=== PATIENT | male | born 1965 | race Caucasian/White ===

== ENCOUNTER → 2019-11-26 11:25 | Outpatient (CLI) | payer SELFPAY | PROVIDERS: Referring Provider Orthopaedic Surgery; Visit Provider Orthopaedic Surgery | DX: R69 Illness, unspecified (principal) ==

== ENCOUNTER 2020-03-28 13:17 | Day surgery (SDC) | payer MEDICAID, SELFPAY ==
[2019-11-26 11:42] VITALS: BMI 23.7
--- NOTE | 2020-03-12 12:23 | PCM.HP.BLA ---
History and Physical Date of Admission: 03/14/20 HISTORY AND PHYSICAL ? [place] 1965 ? ? REFERRING PHYSICIAN: Micha William, DO ? CHIEF COMPLAINT: Consult (Consult port placement) ? HPI: The patient is a 54 year old male presents with diagnosis of polycythemia vera. He is referred for consideration of placement of portacath. He denies history of blood clots. He did have a left clavicular fracture in past, also thumb, wrist, leg, ribs fractures in the past. He denies breathing difficulties. He denies TOB use. He had smoked marijuana years ago, but none presently. Presently on aspirin. ? ? PAST MEDICAL HISTORY ? Basal cell carcinoma ? ? Polycythemia ? ? PAST SURGICAL HISTORY ? PAST SURGICAL HISTORY OF ? ? ? basal cell carcinoma- face and shoulder ? PAST SURGICAL HISTORY OF ? ? ? laser ablation for BPH ? ? PAST INJURIES Denies head injuries, has had left clavicular fracture in past, has had thumb/wrist fractures in past ? Current Outpatient Medications ? hydroxyurea (HYDREA) 500 mg capsule Take 1 capsule by mouth once daily. ? aspirin, enteric coated (ASPIRIN, ENTERIC COATED) 81 mg EC tablet Take 81 mg by mouth once daily. ? ? ALLERGIES: Patient has no known allergies. ? PERSONAL HISTORY: Social History ?Tobacco Use ? Smoking status: Never Smoker ? Smokeless tobacco: Never Used Substance Use Topics ? Alcohol use: Yes ? ? Alcohol/week: 5.0 standard drinks ? ? Types: 2 Cans of Beer (12oz) per week ? ? Binge frequency: Daily or almost daily ? ? Comment: hasn't had ETOH since April ? Drug use: Yes ? ? Types: Marijuana ? ? Comment: last week ? FAMILY HISTORY ? Diabetes Mother ? ? borderline ? Cancer Father ? ? at 46- esophageal and stomach ? No Known Problems Brother ? ? Stroke Maternal Grandfather ? ? ? REVIEW OF SYSTEMS: General - denies fevers, denies anorexia, denies weight loss Cardiovascular - denies chest pain, denies history of [place] Pulmonary - denies shortness of breath, denies coughing up blood Gastrointestinal - denies abdominal pain, denies hematemesis, denies blood in stools Neurological - denies seizures, denies chronic numbness/weakness of extremities, denies chronic headaches Genitourinary - no obstructive urinary symptoms had recent prostate surgery, denies burning with urination, denies blood in urine Hematological - denies spontaneous/prolonged bleeding Skin - denies nonhealing skin wounds Musculoskeletal - very active - biking/water sport/etc. Endocrine - denies diabetes, no thyroid problems Psychological ? no major mood changes, denies hallucinations ? PHYSICAL EXAMINATION: General: The patient is 54 year old male, well nourished, well hydrated in no acute distress. The patient is oriented to time, place, and person. VITALS: Ht: 6' Wt: 181# BP 132/86 Temp 97.8F Head ? Normocephalic. EOM intact with sclera clear and no icterus noted. Mouth with mucus membranes moist. Neck - supple with no jugular venous distention noted. Trachea is midline. Lungs ? clear to auscultation. Normal breath sounds. No rales/rhonchi/wheezing noted. No labored breathing noted, such as retractions. No cough heard. Heart ? normal S1 and S2 auscultated. No rubs/clicks/murmurs noted. Regular rate. Abdomen ? soft and benign. Normal bowel sounds. No abdominal bruits noted. Extremities ? no calf tenderness noted. No pitting edema noted. Skin ? normal skin integrity. Neurological ? gait normal, no focal deficits noted. Psych ? calm and appropriate ? ? IMPRESSION: polycythemia vera, need for portacath for therapeutic phlebotomy ? PLAN: I have discussed the above with the patient. I have offered placement of portacath - patient prefers left sided. I have explained the procedure to the patient. I have counseled the patient as to the risks of the procedure, including but not limited to: infection, bleeding, injury to any blood vessels/nerves, scar tissue, injury to the lungs such as hemothorax/pneumothorax, thromboses of the blood vessels, line sepsis, port infection, non functioning of the port, inability to place the VAD, scar tissue, wound infections, complications of anesthesia, etc. ? the patient understands. ? The patient was offered a surgery/procedure . The provider and patient have discussed in detail the risk of exposure to and/or potential harm posed by the COVID-19 virus with having a surgery/procedure at this time versus the risk of? delaying the surgery/procedure. It is not possible to know either the risk of delaying the surgery or procedure or chance of getting an infection with perfect accuracy, but a joint decision was made between the patient and the provider ?to proceed at this time with the scheduled surgery/procedure. ? The patient wishes to proceed. I have answered all questions to the patient?s satisfaction and the patient has no further questions. . Diagnoses: (D45) Polycythemia vera (HCC) (primary encounter diagnosis) (Z45.2) Exhausted vascular access Return to Clinic: The patient is instructed to follow-up with me after the procedure. ? ?
[2020-03-28] VITALS (7 sets, daily range): BP systolic 123–147; BP diastolic 79–91; PULSE 71–80; RESP 16; TEMP 36.6–37.3; O2SAT 98–100; BMI 24.1
[2020-03-28] MEDS: Lactated Ringers 1,000 ML 75 ML IV (14:27)
[2020-03-28] MEDS: Cefazolin 2 GM in 0.9% Normal Saline 100 ML IV (14:45)
[2020-03-28] MEDS: Lidocaine 1% /Epi 1:100 (20ml) 20 ML Vial (15:15)
--- NOTE | 2020-03-28 15:39 | PCM.OPRPT ---
Report of Operation Date of Procedure: 03/28/20 Pre-Operative Diagnosis: polycythemia vera, need for IV catheter portacath Post-Operative Diagnosis: same Surgery/Procedure Performed:: placement of permanent of indwelling tunnelled cathter in left subclavian vein with subcutaneous port Description of Surgical Findings:: normal left subclavian vein anatomy to SVC Type of Anesthesia:: Local MAC Anesthesiologist: Dick Wilson Specimen's removed: none Estimated Blood Loss (mL): < 5 ml Fluids Replaced: 350 ml RL Description of Procedure: After informed consent was given, the patient was brought to the Operating Room. Appropriate time out protocol was followed. The patient was then placed in the supine position. The patient was then given IV conscious sedation for anesthesia. The patient?s upper chest and neck were then prepped with a surgical skin preparation and sterile surgical drapes were placed. After proper landmarks were ascertained, the skin at the upper left chest area was then infiltrated with 1% xylocaine with epinephrine. A needle trocar was then inserted into the left subclavian vein and there was good aspiration of venous blood. A wire was then threaded into the needle trocar and this was visualized under fluoroscopy to ensure that the wire was in the left subclavian vein. Once this was done, then the needle trocar was removed. A small skin mahesh was made with an 11 blade knife at the wire entrance site. The dilator with the introducer sheath attached was then placed over the wire into the left subclavian vein via the Seldinger technique and this was visualized under fluoroscopy. The dilator and sheath were in proper position as visualized by fluoroscopy in real time. The wire and dilator were then removed. The catheter was then threaded into the introducer sheath and was positioned with its tip at the junction of the superior vena cava and the right atrium as visualized under fluoroscopy in real time. I personally reviewed all of the above fluoroscopic images and noted that the positions of the wire and catheter were correct so that the next step could be conducted. The catheter was flushed with a heparin saline mixture prior to placement. A subcutaneous pocket was then created caudad to the catheter insertion site. A transverse skin incision was made after the skin and subcutaneous tissues were infiltrated with local anesthetic. Blunt dissection was then used to create a space large enough for placement of the subcutaneous port. Hemostasis was carefully controlled with electrocautery. The port was sutured to the subcutaneous fascia using vicryl suture at three sites. The catheter was then tunneled into the subcutaneous pocket. The excess catheter was transected. The catheter was then attached to the subcutaneous port using newspaper correspondent?s guidelines. The port was then placed in the subcutaneous pocket and the sutures were ligated. The subdermal incisional sites were reapproximated with interrupted vicryl suture. The skin was reapproximated with monocryl suture in a subcuticular fashion. Cavilon and steristrips were used for reinforcement of the skin closure and a sterile opsite dressing was applied. Sponge, needle, and instrument count were verified and correct at the time of skin closure. The patient was brought to the Recovery Room in stable condition Grafts/Implants Used: PowerPort 8Fr Lot [id number], 2021-03-04 - Complications none noted - Admit VTE Documentation VTE Present on Admission: Yes VTE Mechan Device Prophylaxis: SCD's
--- NOTE | 2020-03-28 15:50 | DCINST_ITS ---
Discharge Diet: No Restrictions Discharge Activity: Return to Normal Activity, May not drive while taking narcotic pain medications. Call your doctor if your incision/area has: Continuous Slow Oozing, Foul Smelling Discharge Call your doctor if you observe: Fever of 101 or Higher Additional Instructions: Recommended pain control regimen - May take 600 mg ibuprofen (Motrin) and then in 3-4 hours, may take 650 mg acetaminophen (Tylenol), then in 3-4 hours may take 600 mg ibuprofen, then in 3- 4 hours may take 650 mg acetaminophen and so on for 2-3 days May take narcotic pain medication for pain that is not controlled by above and at night for comfort through the night Leave dressings in place May apply ice to the site for comfort as tolerated May get dressings wet in shower - do not scrub in the area and pat dry Do not soak - no tub baths/swimming No follow up required (this is to decrease your risk of exposure during this COVID crisis), you will be seen in the oncology clinic and the nurses will take care of the dressing (they will notify me if any problems with the site) Please call if any questions/concerns Allergies/Adverse Reactions: Allergies No Known Allergies Allergy (Unverified 03/13/20 10:33) Medications to take at Discharge aspirin 81 mg tablet,delayed release 81 mg PO DAILY 11/26/19 hydroxyurea 500 mg capsule 500 mg PO DAILY 11/26/19 Hydrocodone Bitart/Apap 5-325 [Prosperity 5MG-325MG] 1 tablet PO Q12H PRN PRN 3 Days #6 tablet 03/28/20 The following prescriptions were given: Hydrocodone Bitart/Apap 5-325 [Prosperity 5MG-325MG] 1 tablet PO Q12H PRN PRN 3 Days #6 tablet PRN Reason: Pain Score 6-10 Transmission Status: Sent to [id number] Primary Care Physician: Care Physician,No Primary [Primary Care Provider] - Test Results: Test results from this visit will be discussed in further detail at your follow- up appointment, if applicable. When: Follow up in oncology clinic
--- NOTE | 2020-03-28 16:08 | RAD_ITS ---
STUDY: X-RAY CHEST REASON FOR EXAM: Male, 54 years old. POST OP LINE PLACEMENT TECHNIQUE: 2 AP portable view of the chest. COMPARISON: None. FINDINGS: Left chest port with the catheter terminating in the mid SVC. The lungs are clear and expanded. There is no demonstrated pleural abnormality. Normal size heart. Normal mediastinum and daxa. Normal visualized pulmonary arteries. Normal visualized aortic arch and descending thoracic aorta. Normal visualized thoracic spine. Normal visualized ribs, clavicles, and shoulders. There is no demonstrated abnormality of the visualized soft tissue structures of the upper abdomen. RAD/CXR for Line Placement IMPRESSION: Normal x-ray examination of the chest. Electronically Signed: Chris Boyle MD at 16:34 EST , Service support ,
== END 2020-03-28 17:13 | disposition home or self-care (01) ==
LOC: SDC 13:17 → AC 13:18
PROVIDERS: Referring Provider Surgery; Visit Provider Surgery
PROC: (CPT 36561; principal; 2020-03-28 14:45)
DX: D45 Polycythemia vera (principal); Z79.82 Long term (current) use of aspirin; Z87.891 Personal history of nicotine dependence; Z45.2 Encounter for adjustment and management of vascular access device; Z85.828 Personal history of other malignant neoplasm of skin; Z20.828 Contact with and (suspected) exposure to other viral communicable diseases
CPT/HCPCS: 36561; 71045; 77001; 87426; C9803; J7120; C1788